=== PATIENT | female | born 1965 | race Caucasian/White ===

== ENCOUNTER 2017-09-06 07:48 | Day surgery (SDC) | payer BC ==
[2017-08-28 14:01] VITALS: BMI 22.3
[2017-09-06] MEDS ORDERED: PROPOFOL 20 ML ONE ×2 (08:34→09:38)
[2017-09-06] MEDS ORDERED: MIDAZOLAM HCL 2 MG/2 ML SINGLE DOSE VIAL ONE (08:34)
[2017-09-06] MEDS ORDERED: IBUPROFEN 400 MG TABLET (FP) PO ONE (10:16)
[2017-09-06 10:25] VITALS: TEMP 97.4
[2017-09-06 10:51] VITALS: BP 117/64; PULSE 62
[2017-09-06] MEDS ORDERED: BUPIVACAINE HCL/PF 2.5 MG/ML - 30 ML VIAL IJ ONE (11:23)
--- NOTE | 2017-09-06 18:36 | OP ---
DATE OF OPERATION: 09/06/2017 PREOPERATIVE DIAGNOSIS: Recurrent right carpal tunnel syndrome. POSTOPERATIVE DIAGNOSIS: Recurrent right carpal tunnel syndrome. OPERATIVE PROCEDURE: Revision, right carpal tunnel release. ANESTHESIA: Local with sedation. COMPLICATIONS: None. ESTIMATED BLOOD LOSS: Minimal. INDICATIONS FOR PROCEDURE: The patient is a 51-year-old female with the above finding, indicated for operative treatment. Risks, benefits, alternatives were discussed with patient at length. Proper informed consent was obtained. She was again noted that, as this was a revision case, that she has other possible causes of her neuropathy, that the likelihood of success of the surgery was lower than the typical carpal tunnel release. She desired to proceed. PROCEDURE: After proper identification of patient and correct operative site, patient brought to operating room, placed supine on the table, prominences well padded. Sedation was given by the anesthesiologist. Local anesthesia was given, 2% lidocaine. Right upper extremity was prepped and draped in usual sterile fashion. A well-padded tourniquet was placed with a sterile prep. Esmarch bandage used to exsanguinate right upper extremity, tourniquet was inflated to 250 mmHg. A longitudinal incision was made over proximal aspect of the palm and extended proximally in a zig-zag fashion about 4 cm into the distal forearm. Incision was taken sharply through the skin with blunt and sharp dissection in subcutaneous tissues. Median nerve was found proximally and traced from a proximal to distal direction. There were some compressive bands on it; however, the most notable finding was that it did appear to be a bifid nerve with a larger radial-sided branch and a smaller ulnar-sided branch. Approximately 2 cm proximal to the wrist crease, there was a significant thickening of the ulnar branch of the nerve, consistent with either a neurofibroma or a neuroma. The nerve was in continuity. The nerve was traced through the carpal tunnel, where any adhesions were freed. Careful dissection was performed. The wound was irrigated with saline and repaired with a 5-0 nylon suture. Sterile dressings were applied. Patient was reversed from anesthesia and brought to recovery in stable condition. She tolerated procedure well. EDDIE MALDONADO M.D. [id number]
== END 2017-09-06 10:53 | disposition home or self-care (01) ==
LOC: FASU 07:48
PROVIDERS: ATTEND Orthopaedic Surgery Hand Surgery
PROC: 01N50ZZ Release Median Nerve, Open Approach (ICD-10-PCS; principal; 2017-09-06 09:20)
DX: G56.01 Carpal tunnel syndrome, right upper limb (principal)
CPT/HCPCS: 84703